=== PATIENT | female | born 1980 | race Two or more races ===

== ENCOUNTER 2022-02-15 07:43 | Outpatient (CLI) | payer OTHER, BC, SELFPAY ==
[2022-02-15 13:54] LABS: Albumin* 4.1 g/dL (3.3-5.0); Chloride* 105 mmol/L (96-114); Potassium* 4.1 mmol/L (3.6-5.1); Sodium* 136 mmol/L (135-149)
[2022-02-15 13:55] LABS: Aspartate Amino Transferase* 24 U/L (12-35); Bilirubin Total* 0.3 mg/dL (0.1-1.5); Blood Urea Nitrogen* 20 mg/dL (5-24); Carbon Dioxide* 22 mmol/L (20-32); Cholesterol* 214 mg/dL (90-199); Creatinine* 0.8 mg/dL (0.5-1.5); Estimated Glomerular Filt Rate 95 ml/min; Total Protein* 7.4 g/dL (6.0-8.3)
[2022-02-15 13:56] LABS: Alanine Aminotransferase* 30 U/L (4-35); Alkaline Phosphatase* 63 U/L (40-150); Glucose* 186 mg/dL (60-115); HDL Cholesterol* 63 mg/dL (>=50); LDL Cholesterol Calculated 107 mg/dL (<100); Triglycerides* 220 mg/dL (40-149)
== END 2022-02-15 07:44 | disposition home or self-care (01) ==
LOC: FRMREF 07:43
PROVIDERS: PCP Family Medicine; Visit Provider Physician Assistant Medical
DX: R73.03 Prediabetes (principal); I10 Essential (primary) hypertension
CPT/HCPCS: 80053; 80061; 84443

== ENCOUNTER 2023-02-24 10:30 | Outpatient (CLI) | payer OTHER, BC, SELFPAY | END 2023-02-24 10:31 | disposition home or self-care (01) | LOC: NFLDREF 23:38 | PROVIDERS: PCP Physician Assistant Medical; Referring Provider Physician Assistant Medical; Visit Provider Physician Assistant Medical | DX: Z00.00 Encounter for general adult medical examination without abnormal findings (principal); E11.9 Type 2 diabetes mellitus without complications; E66.01 Morbid (severe) obesity due to excess calories; R73.03 Prediabetes; Z13.29 Encounter for screening for other suspected endocrine disorder | CPT/HCPCS: 80053; 80061; 82043; 82570 ==

== ENCOUNTER 2024-05-07 08:50 | Outpatient (CLI) | payer OTHER, BC, SELFPAY | END 2024-05-07 08:51 | disposition home or self-care (01) | LOC: NFLDREF 15:16 | PROVIDERS: PCP Physician Assistant Medical; Referring Provider Physician Assistant Medical; Visit Provider Physician Assistant Medical | DX: Z00.00 Encounter for general adult medical examination without abnormal findings (principal); E11.9 Type 2 diabetes mellitus without complications; Z13.6 Encounter for screening for cardiovascular disorders | CPT/HCPCS: 80048; 80061 ==

== ENCOUNTER 2024-08-21 14:29 | Outpatient (CLI) | payer OTHER, BC, SELFPAY | END 2024-08-21 14:30 | disposition home or self-care (01) | LOC: NFLDREF 08-22 05:37 | PROVIDERS: PCP Physician Assistant Medical; Referring Provider Physician Assistant Medical; Visit Provider Physician Assistant Medical | DX: N30.00 Acute cystitis without hematuria (principal); B96.20 Unspecified Escherichia coli [E. coli] as the cause of diseases classified elsewhere | CPT/HCPCS: 87086 ==

== ENCOUNTER 2025-01-03 08:40 | Outpatient (CLI) | payer OTHER, BC, SELFPAY | END 2025-01-03 08:41 | disposition home or self-care (01) | LOC: NFLDREF 01-04 00:22 | PROVIDERS: PCP Physician Assistant Medical; Referring Provider Physician Assistant Medical; Visit Provider Physician Assistant Medical | DX: E11.9 Type 2 diabetes mellitus without complications (principal) | CPT/HCPCS: 82043; 82570 ==

== ENCOUNTER 2025-03-04 07:56 | Outpatient (CLI) | payer OTHER, BC, SELFPAY ==
--- NOTE | 2025-03-04 08:15 | CRLHL7_ITS ---
For Patients: As a result of the Century Cures Act, medical imaging exams and procedure reports are released immediately into your electronic medical record. You may view this report before your referring provider. If you have questions, please contact your health care provider. INDICATION: BILATERAL SCREENING MAMMOGRAM, ASYMPTOMATIC 44 Y/O FEMALE COMPARISON: BASELINE TECHNIQUE: Digital mammogram in CC and MLO projections including computer-aided detection (CAD) and tomosynthesis. BREAST COMPOSITION: There are scattered areas of fibroglandular density. FINDINGS: No suspicious findings. ASSESSMENT: BI-RADS 2 Benign RECOMMENDATION: Annual screening mammogram. A lay language report of this examination will be provided to the patient. Dictated by: Justin Brown MD @ 03/04/2025 10:13:43 (Electronically Signed)
== END 2025-03-04 07:57 | disposition home or self-care (01) ==
LOC: MAMMO 07:57
PROVIDERS: PCP Physician Assistant Medical; Visit Provider Physician Assistant Medical
DX: Z12.31 Encounter for screening mammogram for malignant neoplasm of breast (principal)
CPT/HCPCS: 77063; 77067